=== PATIENT | male | born 1985 ===

== ENCOUNTER 2022-03-19 22:13 | Emergency (ER) | payer SELFPAY ==
[2022-03-19] MEDS ORDERED: 0.9% SODIUM CHLORIDE 10 ML SYRINGE IVP ONE (22:15)
[2022-03-19] MEDS ORDERED: SODIUM BICARBONATE [ADULT] 8.4% 50 MEQ/50 ML SYRINGE IVP ONE (22:15)
[2022-03-19] MEDS ORDERED: EPINEPHrine 1:10,000 [1 MG/10 ML] SYRINGE IVP ONE (22:15)
== END 2022-03-20 06:24 ==
LOC: EMS 22:14 → EDBD 22:14 → EMS 03-20 06:24
DX: I46.9 Cardiac arrest, cause unspecified (principal); J45.909 Unspecified asthma, uncomplicated; D86.0 Sarcoidosis of lung
CPT/HCPCS: 99285; 92950; 31500; 36680; J0171; J3490; X7700